=== PATIENT | female | born 2000 | race Two or more races ===

== ENCOUNTER 2025-06-23 12:24 | Emergency (ER) | payer BC ==
[~2025-06-23] VITALS: Ht 170.2 cm; Wt 87.3 kg
[2025-06-23 12:43] VITALS: BP 126/60; PULSE 90; RESP 18; TEMP 98.3; O2SAT 98
--- NOTE | 2025-06-23 13:34 | RADIOLOGY REPORT ---
CLINICAL INDICATION: LT.ANKLE PAIN TECHNIQUE: DI ANKLE, COMPLETE(3VW MIN) COMPARISON: None FINDINGS/IMPRESSION: : There is no evidence of acute fracture or dislocation. Soft tissues are unremarkable.
--- NOTE | 2025-06-23 14:05 | Physician Documentation ---
History of Present Illness ~ Chief Complaint: Ankle pain Stated Complaint: L ANKLE PAIN S/P FALL Time Seen by MD: 12:57 Primary Medical Doctor: Layton SIMMONS This is a 25-year-old female who presents with one day of left ankle pain after a trip and fall one day prior, patient reports no numbness to the foot. Patient reports no other injuries and reports no other acute symptoms or concerns. Tetanus witin 5 years: No Medication Reconciliation Allergies: Coded Allergies: No Known Allergies (Unverified , 06/23/25) Review of Systems ROS As stated above in the HPI, otherwise all systems are reviewed and negative. Physical Exam Vital Signs: Temperature: 98.3, Source: Temporal, Heart Rate: 90, Respiratory Rate: 18, BP: 126/60, Pulse Oximetry: 98, Weight: 87.300 Oxygen Flow Rate: 0 Physical Exam VITALS: Reviewed and as above. GENERAL: Alert, nontoxic appearing, no apparent distress. RESPIRATORY: No increased work of breathing, no respiratory distress, speaking in full clear sentences CV: Brisk capillary refill and pedal pulse intact to left foot MUSCULOSKELETAL: Left lateral ankle tender to palpation minimal swelling, posterior, medial, and anterior aspects nontender to palpation, foot nontender to palpation, calf and cheatham mind injure to palpation, no obvious deformities, SKIN: No erythema or ecchymosis to left foot or ankle NEURO: Sensation intact to left foot Progress Results/Orders Results/Orders Orders - SUSSY MCDONALD SALES ORDER ADMINISTRATOR Ortho Orders (06/23/25 ) Vital Signs 06/23/25 12:43 Temp 98.3 Pulse 90 Resp 18 B/P (MAP) 126/60 Pulse Ox 98 O2 Flow Rate 0 EKG/XRAY/CT/US/VASC/MRI Bone/Soft Tissue X-Ray (Ext.) : Additional Comment Exam: ANKLE, COMPLETE(3VW MIN) CLINICAL INDICATION: LT.ANKLE PAIN TECHNIQUE: DI ANKLE, COMPLETE(3VW MIN) COMPARISON: None FINDINGS/IMPRESSION: : There is no evidence of acute fracture or dislocation. Soft tissues are unremarkable. Electronically Signed by:ERNESTO WEBB MD Date & Time: 06/23/251331 Dictated by: ERNESTO WEBB MD Dictation date and time: 06/23/251331 I have reviewed and agree with the radiology report. I have reviewed and interpreted the imaging as: No fracture or dislocation Medical Decision Making Additional information obtaine: N/A Findings 25-year-old female presented with left lateral ankle pain after a trip and fall, imaging did not demonstrate evidence of fracture or dislocation. It is reassuring limb is neurovascularly intact. Treatment plan with rest, ice, compression, elevation. Patient provided home care instructions return to care precautions, and follow up instructions which she verbalized understanding of. General Diff Dx:Considerations: Include: Abrasion, Contusion, Fracture, Hematoma, Laceration, Neurovascular injury, Sprain, Ulcer Knee Diff Dx:Considerations: Unlikely: Abrasion, Arthritis, Contusion, DJD, Fracture-femur, Fracture-fibula, Fracture-patella, Fracture-tibia, Gout, Hematoma, Laceration, Meniscus injury, Neurovascular injury, Open fracture, Rheumatoid arthritis, Septic, Sprain, Sprain-MCL, Sprain-LCL, Sprain-ACL, Sprain-PCL, Other Ankle Diff Dx:Considerations: Include: Abrasion, Contusion, Fracture- metatarsal, Fracture-fibula, Fracture-tarsal, Fracture-tibia, Gout, Laceration, Neurovascular injury, Open fracture, Sprain, Septic, Ulcer Foot Diff Dx:Considerations: Include: Abrasion, Arthritis, Cellulitis, Contusion, Dislocation, DJD, Fracture-metatarsal, Fracture-phalynx, Fracture- tarsal, Gout, Hematoma, Laceration, Neurovascular injury, Puncture, Sprain, Septic Toe Diff Dx:Considerations: Unlikely: Abrasion, Cellulitis, Contusion, Dislocation, Felon, Fracture, Hematoma, Laceration, Neurovascular injury, Open fracture, Paronychia, Subungual hematoma, Other Departure Time of Disposition: 14:01 Disposition: 01 HOME / SELF CARE / HOMELESS Impression: Primary Impression: Left lateral ankle pain Condition: Improved Discharge Instructions: Ankle Pain, RICE Therapy for Routine Care of Injuries Additional Instructions: Wear the ankle brace and use crutches as needed for comfort, please see the attached home care instructions for rest, ice, compression, and elevation. You may bear weight as tolerated on the ankle, wear the ankle brace until all pain has resolved. You may use ibuprofen and or Tylenol as needed for pain. Please follow up with your primary care provider in the next few days. Please return to the emergency department for any new or worsening concerning symptoms. 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 Rest ankle. Referrals: NO PRIMARY CARE PROVIDER (PCP) Education Educated: Patient Educated regarding: diagnosis, treatment, prognosis, need for follow up (Rosa) Signature Scribe Signature: No scribe Attestation: The note accurately reflects work and decisions made by me.MALA Ramos 06/23/25 14:05 SUSSY MCDONALD Jun 23, 2025 14:05
== END 2025-06-23 14:37 | disposition home or self-care (01) ==
LOC: ER 12:26
DX: M25.572 Pain in left ankle and joints of left foot (principal); W01.0XXA Fall on same level from slipping, tripping and stumbling without subsequent striking against object, initial encounter; Y93.89 Activity, other specified; Y92.89 Other specified places as the place of occurrence of the external cause; Y99.8 Other external cause status
CPT/HCPCS: 29540; 73610; 99283; L1930